=== PATIENT | male | born 1955 | race Caucasian/White ===

== ENCOUNTER 2018-07-17 21:19 | Inpatient (IN) ==
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
[2018-07-17] MEDS ORDERED: HYDROmorphone PF Inj 2 MG/ML Vial IV.PUSH ONE (21:40)
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
[2018-07-17] MEDS: Sod Chloride 0.9% Inj 1,000 ML IV.CONT SCH (22:37)
[2018-07-17] MEDS: Pantoprazole Inj 40 MG Vial IV.PUSH SCH (22:38)
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
[2018-07-18] MEDS ORDERED: Chlorhexidine Gluconate 2% 1 Pack (2 Cloths) TOPICAL PRN (04:00)
[2018-07-18] MEDS: Chlorhexidine Gluconate 2% 1 Pack (2 Cloths) TOPICAL SCH (04:01)
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
[2018-07-18] MEDS: levETIRAcetam 500 MG Tablet PO SCH ×2 (09:52→20:55)
[2018-07-18] MEDS: Senna/Docusate Sodium 8.6/50 MG Tablet PO SCH ×2 (09:52→20:55)
[2018-07-18] MEDS: Sod Chloride 0.9% Inj 1,000 ML IV.CONT SCH (09:53)
[2018-07-18] MEDS: Lidocaine 5% Patch T-DERMAL SCH (09:53)
[2018-07-18 10:28] LABS: Albumin 3.7 g/dL (3.4-5.0); Anion Gap 10 meq/L (5-15); Aspartate Aminotransferase 33 U/L (15-37); Baso % (Auto) 0.4 % (0.0-2.0); Blood Urea Nitrogen 17 mg/dL (7-18); Calcium 8.1 mg/dL (8.5-10.1); Carbon Dioxide 23.5 meq/L (21.0-32.0); Chloride 106 meq/L (98-107); Eos # (Auto) 0.1 th/mm3 (0.0-0.4); Eos % (Auto) 0.7 % (0.0-4.0); Glomerular Filtration Rate 82 mL/min (>89); Glucose,Random 138 mg/dL (74-106); Hematocrit 42.1 % (39.0-51.0); Hemoglobin 15.4 gm/dL (13.0-17.0); Lymph # (Auto) 1.1 th/mm3 (1.0-4.8); Lymph % (Auto) 9.5 % (9.0-44.0); Mean Corpuscular Volume 92.8 fL (80.0-100.0); Mono # (Auto) 0.9 th/mm3 (0.0-0.9); Mono % (Auto) 7.7 % (0.0-8.0); Neut # (Auto) 9.7 th/mm3 (1.8-7.7); Neut % (Auto) 81.7 % (16.0-70.0); Platelet Count 190 th/mm3 (150-450); Potassium 3.8 meq/L (3.5-5.1); Red Blood Count 4.53 mil/mm3 (4.50-5.90); Red Cell Distribution Width 13.1 % (11.6-17.2); Sodium 139 meq/L (136-145); White Blood Count 11.9 th/mm3 (4.0-11.0)
[2018-07-18 10:29] LABS: Alanine Aminotransferase 43 U/L (12-78)
[2018-07-18 10:30] LABS: Mean Corpuscular HGB Conc 34.6 % (32.0-36.0)
[2018-07-18 10:31] LABS: Alkaline Phosphatase 61 U/L (45-117); Total Protein 6.8 g/dL (6.4-8.2)
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
[2018-07-18] MEDS ORDERED: Gadobutrol PF 10 MMOL/10 ML Vial (for RAD) IV.SIG ONE (15:57)
--- NOTE | 2018-07-18 16:36 | MR ---
EXAM DATE: 07/18/2018 4:24 PM EST AGE/SEX: 63 years / Male INDICATIONS: Seizures. Fall. Cephalgia. CLINICAL DATA: This is the patient's initial encounter. Patient reports that signs and symptoms have been present for 2 days and indicates a pain score of 3/10. MEDICAL/SURGICAL HISTORY: None. . Bunionectomy. COMPARISON: [facility] [place], CT HEAD W/O CONTRAST, 07/17/2018. . TECHNIQUE: Multiplanar, multisequence examination of the brain was performed without and with 10 ml G adavist (gadobutrol) contrast as a single exam dose. FINDINGS: Acute appearing subarachnoid blood seen of the bilateral temporal, parietal and occipital lobes, left more pronounced than right. There is also a nonacute appearing parenchymal hemorrhage of the left te mporal lobe that measures approximately 2.2 x 4.0 x 2.0 cm in size. This is not significantly changed in size from yesterday's head CT. No mass, mass effect or midline shift demonstrated. There is no ab normal enhancement. There is no restricted diffusion to suggest acute or subacute infarct. Mucoperiosteal thickening is seen of the ethmoid air cells. Patchy fluid seen in the left mastoid air cells. As from eyes on yesterday's head CT, there may be a nondisplaced temporal bone fracture; a te mporal bone CT is pending. No mass lesion or abnormal enhancement seen. CONCLUSION: 1. Acute subarachnoid blood involving the bilateral posterior portions of the cerebral hemispheres, left more so than right. 2. Focal acute appearing parenchymal contusion of the left temporal lobe. 3. No evidence of an acute ischemic event. 4. No discrete mass, mass effect or midline shift. 5. Ethmoid sinusitis. Also some patchy fluid in the left mastoid air cells. Please see above. Electronically signed by: Darrius Rivera MD 07/18/2018 4:34 PM EST
--- NOTE | 2018-07-18 16:47 | CT ---
EXAM DATE: 07/18/2018 4:39 PM EST AGE/SEX: 63 years / Male INDICATIONS: Left temporal bone contusion. CLINICAL DATA: This is the patient's initial encounter. Patient reports that signs and symptoms have been present for 2 days and indicates a pain score of 7/10. MEDICAL/SURGICAL HISTORY: . Intracranial hemorrhage. None. RADIATION DOSE: 59.43 CTDI (mGy) COMPARISON: [facility] [place], CT HEAD W/O CONTRAST, 07/18/2018. . TECHNIQUE: Thin section acquisition was performed without contrast in the coronal and axial planes u sing a multirow detector CT scanner. Using automated exposure control and adjustment of the mA and/o r kV according to patient size, radiation dose was kept as low as reasonably achievable to obtain opt imal diagnostic quality images. DICOM format image data is available electronically for review and c omparison. FINDINGS: RIGHT TEMPORAL BONE: Ossicles: The ossicles are intact. The oval window niche is intact. Mastoid Air Cells: Well aerated. No sclerotic or opacified air cells are seen. The aditus is intac t. Middle Ear: The epitympanum and hypotympanum are intact. Prussak's space and scutum are intact. The oval and round window is intact. Labyrinth: The cochlea and semicircular canals are normal in configuration without sclerosis. Internal Acoustic Canal: Normal in size without erosion. The cerebellar-pontine angle is intact. Jugular Fossa: Normal in size and position. Facial Canal: The tympanic, genu and descending portions are intact. External Acoustic Canal: The bony and cartilaginous portions are intact. LEFT TEMPORAL BONE: Tiny bubble of gas is seen posteriorly in the left middle cranial fossa, series 2 image 118 Ossicles: The ossicles are intact. The oval window niche is intact. Mastoid Air Cells: Scattered fluid seen in the left mastoid air cells. Middle Ear: The epitympanum and hypotympanum are intact. Prussak's space and scutum are intact. The oval and round window are grossly intact. There is fluid in the middle ear. Labyrinth: The cochlea and semicircular canals are normal in configuration without sclerosis. Internal Acoustic Canal: Normal in size without erosion. The cerebellar-pontine angle is intact. Jugular Fossa: Normal in size and position. Facial Canal: The tympanic, genu and descending portions are intact. External Acoustic Canal: The bony and cartilaginous portions are intact. CONCLUSION: CT findings consistent with a focal and nondisplaced fracture of the left temporal bone. Fracture involves the anterior margin of the petrous ridge. There is a focal hemorrhagic contusion in the adjacent left temporal bone and tiny pneumocephaly. Associated small fluid and/or blood in the m iddle ear but I don't see ossicular disruption or other acute complication. Electronically signed by: Darrius Rivera MD 07/18/2018 4:46 PM EST
--- NOTE | 2018-07-18 16:48 | CT ---
EXAM DATE: 07/18/2018 4:41 PM EST AGE/SEX: 63 years / Male INDICATIONS: Intracrainal hemorrhage. CLINICAL DATA: This is the patient's subsequent encounter. Patient reports that signs and symptoms h ave been present for 2 days and indicates a pain score of 7/10. MEDICAL/SURGICAL HISTORY: None. None. RADIATION DOSE: 45.79 CTDI (mGy) [place] [facility] [place]. . TECHNIQUE: CT of the head without contrast. Using automated exposure control and adjustment of the mA and/or kV according to patient size, radiation dose was kept as low as reasonably achievable to ob tain optimal diagnostic quality images. DICOM format image data is available electronically for revi ew and comparison. FINDINGS: Cerebrum: Interval evolution of subtle bilateral subarachnoid hemorrhage overlying the varices now m ost notably near the posterior occipital high convexities on the left. Interval evolution of previous ly described left temporal lobe hemorrhagic contusion which now measures approximately 3.4 cm in comp arison to 4 cm on prior exam. No new intercurrent hemorrhage. Ventricles are midline and normal in si ze without intraventricular blood products. Posterior Fossa: The cerebellum and brainstem are intact. The 4th ventricle is midline. The cerebe llopontine angle is unremarkable. Extracranial: The visualized portion of the orbits is intact. Mild mucoperiosteal thickening of the ethmoid air cells. Skull: The calvaria appears intact. No evidence of skull fracture. Please see temporal bone CT repo rt for additional details. CONCLUSION: 1. Evolving bilateral subarachnoid hemorrhage and left temporal hemorrhagic contusion. 2. No intercurrent new hemorrhage, midline shift or hydrocephalus. . Electronically signed by: Mic Perla MD 07/18/2018 4:47 PM EST
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
--- NOTE | 2018-07-18 19:24 | MG ---
cc: Matthew Falcon MD EEG NUMBER: [id number] CLINICAL HISTORY: Focal hemorrhage left temporal lobe, seizure, MEDICATIONS: Keppra. DESCRIPTION: I do not see any left temporal abnormality. Diffuse alpha and beta rhythms are noted. There is a fall asleep with stage II sleep. Some sleep spindles. IMPRESSION: Hyperventilation is not performed. Photic stimulation performed without significant posterior driving. A normal awake and sleep electroencephalogram. No evidence for a focal diffuse abnormality. No left temporal lobe abnormalities were noted. Matthew Falcon MD DJM/sv , 07:06 PM , 07:08 PM
[2018-07-18] MEDS: Multivitamin Inj 10 ML, Thiamine Inj 100 MG, Folic Acid Inj 1 MG in Sodium Chlor 0.9% I... IV.SIG SCH ×5 (22:58)
[2018-07-18] MEDS: Pantoprazole Inj 40 MG Vial IV.PUSH SCH (22:58)
[2018-07-19] MEDS: Chlorhexidine Gluconate 2% 1 Pack (2 Cloths) TOPICAL SCH (03:28)
[2018-07-19 04:37] LABS: Baso % (Auto) 0.3 % (0.0-2.0); Eos # (Auto) 0.2 th/mm3 (0.0-0.4); Eos % (Auto) 2.2 % (0.0-4.0); Hematocrit 42.4 % (39.0-51.0); Hemoglobin 15.1 gm/dL (13.0-17.0); Lymph # (Auto) 1.7 th/mm3 (1.0-4.8); Lymph % (Auto) 15.7 % (9.0-44.0); Mean Corpuscular HGB Conc 35.7 % (32.0-36.0); Mean Corpuscular Hemoglobin 33.7 pg (27.0-34.0); Mean Corpuscular Volume 94.5 fL (80.0-100.0); Mean Platelet Volume 8.6 fL (7.0-11.0); Mono # (Auto) 1.2 th/mm3 (0.0-0.9); Mono % (Auto) 11.6 % (0.0-8.0); Neut # (Auto) 7.5 th/mm3 (1.8-7.7); Neut % (Auto) 70.2 % (16.0-70.0); Platelet Count 193 th/mm3 (150-450); Red Blood Count 4.49 mil/mm3 (4.50-5.90); White Blood Count 10.6 th/mm3 (4.0-11.0)
[2018-07-19 04:59] LABS: Anion Gap 6 meq/L (5-15); Blood Urea Nitrogen 14 mg/dL (7-18); Calcium 8.1 mg/dL (8.5-10.1); Carbon Dioxide 28.5 meq/L (21.0-32.0); Chloride 109 meq/L (98-107); Glomerular Filtration Rate Greater Than 89 mL/min (>89); Glucose,Random 98 mg/dL (74-106); Potassium 3.7 meq/L (3.5-5.1); Sodium 143 meq/L (136-145)
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
--- NOTE | 2018-07-19 08:57 | P.PNNEU ---
Subjective Active Medications: Active Medications Albuterol (Duoneb Neb (Prn)) 1 ampul NEB Q2HR NEB PRN PRN Reason: SHORTNESS OF BREATH Bacitracin (Baciguent Oint) 1 applicatio TOPICAL BID [facility] Last Admin: 07/18/18 20:56 Dose: 1 applicatio Chlorhexidine Gluconate (Chlorhexidine 2% Cloth) 3 pack TOPICAL DAILY@0400 [facility] Stop: 07/23/18 03:59 Last Admin: 07/19/18 03:28 Dose: 3 pack Chlorhexidine Gluconate (Chlorhexidine 2% Cloth) 3 pack TOPICAL DAILY@0400 PRN PRN Reason: Extra cloth needed Stop: 07/23/18 03:59 Enalaprilat (Vasotec Inj) 1.25 mg IV.PUSH Q8H PRN PRN Reason: Blood pressure 180/95 Multivitamins 10 ml/ Thiamine HCl 100 mg/ Folic Acid 1 mg/Sodium Chloride 511.2 mls @ 125 mls/hr IV.SIG Q24H [facility] Stop: 07/20/18 03:06 Last Infusion: 07/19/18 03:29 Dose: Infused Levetiracetam (Keppra) 500 mg PO BID [facility] Last Admin: 07/18/18 20:55 Dose: 500 mg Lidocaine HCl (Lidoderm 5% Patch.12 Hr) 1 patch T-DERMAL DAILY [facility] Last Admin: 07/18/18 09:53 Dose: 1 patch Oxycodone HCl (Roxicodone) 5 mg PO Q4H PRN PRN Reason: Pain 1-5 Oxycodone HCl (Roxicodone) 10 mg PO Q4H PRN PRN Reason: PAIN SCALE 6 TO 10 Pantoprazole Sodium (Protonix Inj) 40 mg IV.PUSH Q24H [facility] Last Admin: 07/18/18 22:58 Dose: 40 mg Patch Removal (Remove Old Patch) 1 each T-DERMAL HS [facility] Last Admin: 07/18/18 20:55 Dose: 1 each Senna/Docusate Sodium (Tesha-Colace) 1 tab PO BID [facility] Last Admin: 07/18/18 20:55 Dose: 1 tab Sodium Chloride (Ns Flush) 2 ml IV.FLUSH UNSCH PRN PRN Reason: FLUSH AFTER USING IV ACCESS Allergies/Adverse Reactions: Allergies Allergy/AdvReac Type Severity Reaction Status Date / Time No Known Allergies Allergy Verified 07/17/18 21:40 Physical Exam Vital signs: Vital Signs 07/18/18 09:00 07/18/18 09:30 07/18/18 10:00 Temperature Pulse Rate 80 80 72 Respiratory Rate 115 H 113 H 121 H Blood Pressure 112/75 125/77 113/70 Pulse Oximetry 95 96 94 L 07/18/18 10:30 07/18/18 11:00 07/18/18 11:30 Temperature Pulse Rate 72 72 81 Respiratory Rate 138 H 18 37 H Blood Pressure 105/64 106/66 119/70 Pulse Oximetry 94 L 94 L 96 07/18/18 12:00 07/18/18 12:30 07/18/18 13:00 Temperature 98.3 F Pulse Rate 68 64 73 Respiratory Rate 15 14 14 Blood Pressure 110/66 112/70 116/69 Pulse Oximetry 95 96 98 07/18/18 13:04 07/18/18 13:30 07/18/18 14:00 Temperature Pulse Rate 64 80 Respiratory Rate 14 14 18 Blood Pressure 115/70 121/75 Pulse Oximetry 97 96 07/18/18 14:30 07/18/18 15:00 07/18/18 15:26 Temperature Pulse Rate 80 83 85 Respiratory Rate 18 125 H 71 H Blood Pressure 116/67 125/72 Pulse Oximetry 96 96 95 07/18/18 15:30 07/18/18 16:10 07/18/18 17:00 Temperature 98.3 F Pulse Rate 81 70 Respiratory Rate 17 18 Blood Pressure 129/72 Pulse Oximetry 99 96 07/18/18 18:00 07/18/18 18:36 07/18/18 19:00 Temperature Pulse Rate 64 81 79 Respiratory Rate 16 26 H 20 Blood Pressure 121/77 118/74 Pulse Oximetry 94 L 97 97 07/18/18 19:10 07/18/18 20:00 07/18/18 21:00 Temperature 98.4 F Pulse Rate 79 76 Respiratory Rate 16 20 19 Blood Pressure 117/70 122/69 Pulse Oximetry 97 97 07/18/18 22:00 07/18/18 23:00 07/19/18 00:00 Temperature 98.6 F Pulse Rate 79 65 61 Respiratory Rate 21 16 16 Blood Pressure 131/71 124/71 131/64 Pulse Oximetry 94 L 97 98 07/19/18 01:00 07/19/18 02:00 07/19/18 03:00 Temperature Pulse Rate 62 61 61 Respiratory Rate 22 15 25 H Blood Pressure 124/75 101/56 L 120/66 Pulse Oximetry 98 95 98 07/19/18 04:00 07/19/18 05:00 07/19/18 06:00 Temperature 98.6 F Pulse Rate 69 58 L 66 Respiratory Rate 132 H 39 H 19 Blood Pressure 125/77 115/70 125/78 Pulse Oximetry 96 97 96 07/19/18 08:00 Temperature Pulse Rate 57 L Respiratory Rate Blood Pressure Pulse Oximetry Intake & Output 07/18/18 07/19/18 07/19/18 18:59 06:59 18:59 Intake Total 1860 / 1860 1595 / 1595 Output Total 800 / 800 1000 / 1000 Balance 1060 / 1060 595 / 595 Weight 100 kg Intake: IV 1200 / 1200 715 / 715 NS Inj 1,000 ML @ 100 mls/hr IV 1000 / 1000 .CONT .Q10H [facility] Rx#:[id number] Ofirmev Inj 1,000 mg In 100 ml 200 / 200 200 / 200 @ 400 mls/hr IV.SIG Q6H [facility] Rx# :[id number] MVI-12 Inj 10 ML Thiamine Inj 515 / 515 100 MG Folvite Inj 1 MG In NS Inj 500 ML @ 125 mls/hr IV.SIG Q24H [facility] Rx#:[id number] Oral 660 / 660 880 / 880 Output: Urine 800 / 800 1000 / 1000 Other: # Voids 2 6 Narrative: no sz ox3 doing well vff Objective Laboratory Results - last 24 hr 07/18/18 07/18/18 07/19/18 09:40 09:40 03:44 WBC 11.9 H 10.6 RBC 4.53 4.49 L Hgb 15.4 15.1 Hct 42.1 42.4 MCV 92.8 94.5 MCH 34.0 33.7 MCHC 34.6 35.7 RDW 13.1 13.0 Plt Count 190 193 MPV 8.0 8.6 Prelim Diff (Auto) Public Health Director Neut % (Auto) 81.7 H 70.2 H Lymph % (Auto) 9.5 15.7 [place] % (Auto) 7.7 11.6 H Eos % (Auto) 0.7 2.2 Baso % (Auto) 0.4 0.3 Neut # (Auto) 9.7 H 7.5 Lymph # (Auto) 1.1 1.7 [place] # (Auto) 0.9 1.2 H Eos # (Auto) 0.1 0.2 Baso # (Auto) 0.0 0.0 WBC Differential . . Differential Comment Auto diff final Auto diff final Sodium 139 Potassium 3.8 Chloride 106 Carbon Dioxide 23.5 Anion Gap 10 BUN 17 Creatinine 0.94 Estimated GFR 82 L Random Glucose 138 H Calcium 8.1 L Total Bilirubin 0.5 AST 33 ALT 43 Alkaline Phosphatase 61 Total Protein 6.8 Albumin 3.7 07/19/18 03:44 WBC RBC Hgb Hct MCV MCH MCHC RDW Plt Count MPV Prelim Diff (Auto) Neut % (Auto) Lymph % (Auto) [place] % (Auto) Eos % (Auto) Baso % (Auto) Neut # (Auto) Lymph # (Auto) [place] # (Auto) Eos # (Auto) Baso # (Auto) WBC Differential Differential Comment Sodium 143 Potassium 3.7 Chloride 109 H Carbon Dioxide 28.5 Anion Gap 6 BUN 14 Creatinine 0.86 Estimated GFR Greater than 89 Random Glucose 98 Calcium 8.1 L Total Bilirubin AST ALT Alkaline Phosphatase Total Protein Albumin Review/Management - Review/Management Plan: imp mri nothing new [facility] for 6 months or other high risk acitivity
[2018-07-19] MEDS: levETIRAcetam 500 MG Tablet PO SCH ×2 (09:00→21:29)
[2018-07-19] MEDS: Senna/Docusate Sodium 8.6/50 MG Tablet PO SCH ×2 (09:00→21:29)
[2018-07-19] MEDS: Lidocaine 5% Patch T-DERMAL SCH (09:00)
[2018-07-19] MEDS ORDERED: Enoxaparin Inj 30 MG/0.3 ML Syringe SQ SCH (09:45)
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
[2018-07-19] MEDS ORDERED: Enoxaparin Inj 40 MG/0.4 ML Syringe SQ SCH (13:00)
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
[2018-07-19] MEDS: Multivitamin Inj 10 ML, Thiamine Inj 100 MG, Folic Acid Inj 1 MG in Sodium Chlor 0.9% I... IV.SIG SCH (23:22)
[2018-07-19] MEDS: Pantoprazole Inj 40 MG Vial IV.PUSH SCH (23:27)
[2018-07-20 02:28] VITALS: RESP 20
[2018-07-20 06:22] VITALS: TEMP 98.2
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
[2018-07-20] MEDS: levETIRAcetam 500 MG Tablet PO SCH (09:00)
[2018-07-20] MEDS: Lidocaine 5% Patch T-DERMAL SCH (09:00)
[2018-07-20] MEDS: Senna/Docusate Sodium 8.6/50 MG Tablet PO SCH (09:00)
[2018-07-20] MEDS: Chlorhexidine Gluconate 2% 1 Pack (2 Cloths) TOPICAL SCH (09:01)
[2018-07-20 09:36] VITALS: BP 137/82; O2SAT 92
[2018-07-20 10:32] VITALS: PULSE 64
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
[2018-07-20] MEDS ORDERED: Acetaminophen 325 MG Tablet PO PRN (11:29)
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
== END 2018-07-20 12:30 | disposition home or self-care (01) ==
LOC: NEPE 21:19 → NEDA 21:40 → NEDH 07-18 02:08 → N03 07-18 05:58 → N05 07-19 15:50
PROVIDERS: ADMIT Surgery; ATTEND Surgery